=== PATIENT | female | born 1980 | race Caucasian/White ===

== ENCOUNTER 2016-09-09 21:24 | Emergency (ER) | payer BC, OTHER ==
[~2016-09-09] VITALS: Ht 162.6 cm; Wt 61.3 kg
[~2016-09-09 21:24] MED LIST: CEPH500C2 PO; ONDA4TAB46 PO; PHEN-939 PO
[2016-09-09 21:32] VITALS: TEMP 36.7; Ht 162.6 cm; Wt 61.3 kg
[2016-09-09] MEDS ORDERED: CEFTRIAXONE SOD INJ 1 GM ADDVIAL IV STA (21:40)
[2016-09-09] MEDS ORDERED: ONDANSETRON INJ 2 MG/ML 2 ML VIAL IV STA (21:40)
[2016-09-09] MEDS ORDERED: KETOROLAC TROMETHAMINE 30 MG/ML VIAL IV STA (21:40)
[2016-09-09] MEDS ORDERED: SODIUM CHLORIDE 0.9% 1000ML 1,000 ML IV STA ×2 (21:40)
[2016-09-09 22:05] LABS: BASO % 0.3 %; BASO ABS # 0.02 K/uL (0-0.2); COMPLETE YES; EOS % 1.4 %; HEMATOCRIT 39.8 % (37-47); IG% 0.3 %; LYMPH % 38.2 %; LYMPH ABS # 2.81 K/uL (1.2-3.4); MEAN CELL VOLUME 90.5 fL (80-100); MEAN CORPUSCULAR HEMOGLOBIN 31.4 pg (25-34); MEAN CORPUSCULAR HGB CONC 34.7 g/dl (32-36); MONO % 7.1 %; NEUT % 52.7 %; PLATELET COUNT 169 K/uL (130-400); WHITE BLOOD COUNT 7.36 K/uL (4.8-10.8)
[2016-09-09 22:22] LABS: BUN/CREATININE RATIO 26.7 (10-20); CALCIUM 8.7 mg/dl (8.5-10.1); CREATININE 0.6 mg/dl (0.60-1.20); POTASSIUM 3.6 mmol/L (3.5-5.1)
--- NOTE | 2016-09-09 22:45 | DIAGNOSTIC IMAGING REPORT ---
RENAL ULTRASOUND HISTORY: right flank pain, ? Stone/pyelo COMPARISON: Abdomen and pelvis CT 05/19/2016. FINDINGS: Right kidney: 13.1 cm. No hydronephrosis. Normal corticomedullary differentiation and cortical thickness. There is a 5 mm stone within the right kidney. There are few small cysts measuring up to 1 cm. Left kidney: 11.5 cm. No hydronephrosis. Normal corticomedullary differentiation and cortical thickness. Bladder: Not well distended. No bladder wall thickening. The ureteral jets were not identified during the examination. IMPRESSION: Right-sided nephrolithiasis. No hydronephrosis. Electronically signed by: Shayne Gallardo M.D. 09/09/2016 10:43 PM Dictated Date/Time: 09/09/2016 10:41 PM
[2016-09-10] LABS: URINE APPEARANCE CLOUDY (CLEAR); URINE BILIRUBIN NEG (NEG); URINE COLOR YELLOW; URINE EPITHELIAL CELL AUTO >30 /lpf (0-5); URINE NITRITE NEG (NEG); URINE SPECIFIC GRAVITY 1.021 (1.000-1.030); UROBILINOGEN NEG (NEG); ZZUR CULT IF INDIC CLEAN CATCH YES
[2016-09-10 00:01] LABS: MANUAL MICROSCOPIC REQUIRED? NO; REVIEW REQ? NO
[2016-09-10] MEDS ORDERED: SEPTRA DS HOME PACK 1 EA VIAL PO ONE (00:15)
[2016-09-10] MEDS ORDERED: TRAMADOL HCL 50 MG HOME PACK PO ONE (00:15)
--- NOTE | 2016-09-10 00:17 | EMERGENCY ROOM VISIT NOTE ---
History First contact with patient: 21:36 Chief Complaint: UNABLE TO VOID Stated Complaint: BACK/ABD PAIN,UNABLE TO URINATE History of Present Illness The patient is a 36 year old female who presents to the Emergency Room with complaints of right flank pain with urinary free to see, urgency and dysuria with pain that goes down to her bladder region for the past day. Patient last urinated this afternoon. It is now 10 PM at night. Patient feels that she currently has to go. Patient denies chest pain, dyspnea, fever, chills, nausea , vomiting, diarrhea, vaginal itching or discharge. She has had bladder infections before. She's had kidney stones before but this feels different. Review of Systems See HPI for pertinent positives & negatives. A total of 10 systems reviewed and were otherwise negative. Past Medical/Surgical History Medical Problems: (1) Anxiety (2) Anxiety (3) Degenerative disc disease (4) GERD (gastroesophageal reflux disease) (5) Herniated disc Family History Cancer Diabetes mellitus Hypertension Kidney disease Social History Smoking Status: Current Every Day Smoker Marital Status: single Housing Status: lives with family Occupation Status: employed Current/Historical Medications No Active Prescriptions or Reported Meds Allergies Coded Allergies: Prednisone (Verified Allergy, Mild, Rash, 09/09/16) Acetaminophen (Verified Allergy, Unknown, ., 09/09/16) Meperidine (Verified Allergy, Unknown, Hives, 09/09/16) Nitrofurantoin (Verified Allergy, Unknown, Nausea/Vomiting, 09/09/16) Oxycodone (Verified Allergy, Unknown, ., 09/09/16) Pantoprazole (Verified Allergy, Unknown, Abdominal pain and shortness of breath., 09/09/16) Physical Exam Vital Signs Date Time Temp Pulse Resp B/P Pulse Ox O2 Delivery O2 Flow Rate FiO2 09/09/16 22:54 70 16 102/51 09/09/16 22:14 69 09/09/16 21:32 36.7 83 18 102/58 98 Room Air Physical Exam VITALS: Vitals are noted on the nurse's note and reviewed by myself. Vital signs stable. GENERAL: Pleasant female, in no acute distress, nondiaphoretic, well-developed well-nourished. SKIN: The skin was without rashes, erythema, edema, or bruising. There is no tenting of the skin. Capillary reflex less than 2 seconds. HEAD: Normocephalic atraumatic. EARS: External auditory canals clear, tympanic membranes pearly baxter without erythema or effusion bilaterally. EYES: Pupils equal round and reactive to light and accommodation. Conjunctivae without injection, sclerae without icterus. Extraocular movements intact. NOSE: Patent, turbinates without inflammation or discharge. MOUTH: Mucous membranes moist. Pharynx without erythema or exudate. Uvula midline. Airway patent. Tongue does not deviate. NECK: Supple without nuchal rigidity. No lymphadenopathy. No thyromegaly. Cervical spine is nontender. No JVD. HEART: Regular rate and rhythm without murmurs gallops or rubs. LUNGS: Clear to auscultation bilaterally without wheezes, rales or rhonchi. No dullness to percussion. No retractions or accessory muscle use. ABDOMEN: Positive bowel sounds x 4. Normal tympanic percussion. Soft, nontender, without masses or organomegaly. Combs sign negative. No guarding or rebound tenderness. Right CVA tenderness with bladder discomfort MUSCULOSKELETAL: No muscle atrophy, erythema, or edema noted. NEURO: Patient was alert and oriented to person place and time. Normal sensation to light and sharp touch. No focal neurological deficits. Medical Decision & Procedures Laboratory Results 09/09/16 21:50 Red Blood Count 4.40, Mean Corpuscular Volume 90.5, Mean Corpuscular Hemoglobin 31.4, Mean Corpuscular Hemoglobin Concent 34.7, Mean Platelet Volume 11.0, Neutrophils (%) (Auto) 52.7, Lymphocytes (%) (Auto) 38.2, Monocytes (%) (Auto) 7.1, Eosinophils (%) (Auto) 1.4, Basophils (%) (Auto) 0.3, Neutrophils # (Auto) 3.89, Lymphocytes # (Auto) 2.81, Monocytes # (Auto) 0.52, Eosinophils # (Auto) 0.10, Basophils # (Auto) 0.02 09/09/16 21:50 Test 09/09/16 21:50 09/09/16 23:00 White Blood Count 7.36 K/uL (4.8-10.8) Red Blood Count 4.40 M/uL (4.2-5.4) Hemoglobin 13.8 g/dL (12.0-16.0) Hematocrit 39.8 % (37-47) Mean Corpuscular Volume 90.5 fL (80-100) Mean Corpuscular Hemoglobin 31.4 pg (25-34) Mean Corpuscular Hemoglobin Concent 34.7 g/dl (32-36) Platelet Count 169 K/uL (130-400) Mean Platelet Volume 11.0 fL (7.4-10.4) Neutrophils (%) (Auto) 52.7 % Lymphocytes (%) (Auto) 38.2 % Monocytes (%) (Auto) 7.1 % Eosinophils (%) (Auto) 1.4 % Basophils (%) (Auto) 0.3 % Neutrophils # (Auto) 3.89 K/uL (1.4-6.5) Lymphocytes # (Auto) 2.81 K/uL (1.2-3.4) Monocytes # (Auto) 0.52 K/uL (0.11-0.59) Eosinophils # (Auto) 0.10 K/uL (0-0.5) Basophils # (Auto) 0.02 K/uL (0-0.2) RDW Standard Deviation 41.8 fL (36.4-46.3) RDW Coefficient of Variation 12.6 % (11.5-14.5) Immature Granulocyte % (Auto) 0.3 % Immature Granulocyte # (Auto) 0.02 K/uL (0.00-0.02) Anion Gap 10.0 mmol/L (3-11) Est Creatinine Clear Calc Drug Dose 113.1 ml/min Estimated GFR () 136.9 Estimated GFR (Non- 118.1 BUN/Creatinine Ratio 26.7 (10-20) Calcium Level 8.7 mg/dl (8.5-10.1) Total Bilirubin 0.6 mg/dl (0.2-1) Direct Bilirubin 0.1 mg/dl (0-0.2) Aspartate Amino Transf (AST/SGOT) 14 U/L (15-37) Alanine Aminotransferase (ALT/SGPT) 17 U/L (12-78) Alkaline Phosphatase 83 U/L (45-117) Total Protein 7.4 gm/dl (6.4-8.2) Albumin 3.9 gm/dl (3.4-5.0) Urine Color YELLOW Urine Appearance CLOUDY (CLEAR) Urine pH 5.0 (4.5-7.5) Urine Specific [place] 1.021 (1.000-1.030) Urine Protein NEG (NEG) Urine Glucose (UA) NEG (NEG) Urine Ketones 1+ (NEG) Urine Occult Blood TRACE (NEG) Urine Nitrite NEG (NEG) Urine Bilirubin NEG (NEG) Urine Urobilinogen NEG (NEG) Urine Leukocyte Esterase NEG (NEG) Urine WBC (Auto) 1-5 /hpf (0-5) Urine RBC (Auto) 0-4 /hpf (0-4) Urine Hyaline Casts (Auto) 1-5 /lpf (0-5) Urine Epithelial Cells (Auto) >30 /lpf (0-5) Urine Bacteria (Auto) 1+ (NEG) Medications Administered Medications (Trade) Dose Ordered Sig/Tiff Route Start Time Stop Time Status Last Admin Dose Admin Ceftriaxone Sodium (Rocephin Inj) 1 gm NOW STAT IV 09/09/16 21:40 09/09/16 21:47 DC 09/09/16 21:59 1 GM Ondansetron HCl (Zofran Inj) 4 mg NOW STAT IV 09/09/16 21:40 09/09/16 21:47 DC 09/09/16 21:59 4 MG Ketorolac Tromethamine 30 mg 30 mg NOW STAT IV 09/09/16 21:40 09/09/16 21:47 DC 09/09/16 22:00 30 MG Sodium Chloride (Nss 1000ml) 1,000 ml @ 999 mls/hr Q1H1M STAT IV 09/09/16 21:40 09/09/16 22:40 DC 09/09/16 22:01 999 MLS/HR ED Course Prior records/ancillary studies reviewed. Triage Nursing notes reviewed. Additional history obtained from the family. The patient's history was concerning for her and her symptoms with right flank pain. Differential diagnosis: Etiologies such as renal colic, appendicitis, diverticulitis, mesenteric ischemia, aortic pathology, infections, inflammatory bowel disease, PUD, biliary pathology, UTI, as well as others were entertained. Physical examination findings: As above. ER treatment provided: Rocephin, IV fluids, Toradol, Zofran On reassessment the patient felt better. Diagnostic interpretation by me: The labs revealed no worrisome leukocytosis or left slight abnormality. Urinalysis revealed concerns for contamination and Urine sent for culture Imaging studies: Ultrasound revealed no hydronephrosis It appears that the patient has possible early UTI as she is symptomatic. Patient was offered CT imaging and declined. I felt this is reasonable as she' s had multiple scans in the past. Patient was well-appearing. She was not septic appearing. Afebrile. She was tolerating fluids. She is advised to rest , stay well-hydrated, take medications as directed and to follow-up family care in a few days or here in the ER sooner for fevers, vomiting, severe pain, worsening signs or symptoms or as needed. Patient did not have acute abdomen on exam.By the evaluation outlined above emergent etiologies such as appendicitis, diverticulitis, mesenteric ischemia, aortic pathology inflammatory bowel disease, PUD, biliary pathology, as well as others were deemed relatively unlikely. The pt informed about the findings as listed above. All questions were answered and pleased with the treatment. Return instructions were outlined and the patient was discharged in stable condition. Outpatient prescription management: BD Referral: The patient was referred back to their primary care physician for follow-up in 2 to 3 days for a recheck of the current condition. Case reviewed with my attending. Medical Decision As above [place] Drug Monitoring Program Search Results: patient reviewed within database, no issues identified Impression Primary Impression: UTI (urinary tract infection) Additional Impression: Right flank pain Departure Information Dispostion Home / Self-Care Condition GOOD Prescriptions No Active Prescriptions or Reported Meds Referrals Slim Gaines M.D. (PCP) Patient Instructions My [facility] Additional Instructions DO NOT drive, drink alcohol, operate machinery, or perform dangerous activities today. You were given medications in the ER that can affect your ability to safely function or operate a vehicle. Trimethoprim-Sulfamethoxazole(Bactrim DS): Take one pill twice daily for 7 days for your urine infection. All antibiotics can cause diarrhea. If this occurs and you feel worse or it does not resolve in 1-2 days follow up with your doctor or return to the Emergency Department as this could be signs of serious underlying problems. Any medication can cause an allergic reaction, stop the pills immediately and return to the ER for rash, hives, breathing difficulties, or swelling. Zofran 4 mg: Take one every six hours as needed for nausea. Avoid alcohol, operating machinery or dangerous equipment, working on ladders or roofs, DRIVING , or situations where being under the influence may be dangerous. Ibuprofen(Motrin, Advil) may be used for fever or pain. Use 600mg every six hours as needed. Take with food. Avoid using more than 2400mg in a 24 hour period. Do not use 2400mg per day for more than three consecutive days without physician direction. Prolonged inappropriate use can lead to stomach upset or ulcers. Rest and drink plenty of fluids as tolerated. Slow sips of water or sports drinks are recommended instead of large amounts all at once. Continue current medications. Once your stomach is settled start with a clear liquid diet (jello, soup broth, etc.) and then advance as tolerated. You should avoid full, heavy meals for about 24 hrs from the time your symptoms resolved. Return to the ER immediately for worsening or persistent abdominal/back pain, vomiting, fevers, worsening of your condition, or as needed. Follow up with your primary physician within 2-3 days for a recheck of the current condition. Problem Qualifiers Primary Impression: UTI (urinary tract infection) Urinary tract infection type: site unspecified Hematuria presence: with hematuria Qualified Codes: N39.0 - Urinary tract infection, site not specified ; R31.9 - Hematuria, unspecified
[2016-09-10] MEDS ORDERED: SULF800T23 PO (00:18)
[2016-09-10 00:31] VITALS: BP 104/55; PULSE 70; O2SAT 97
== END 2016-09-10 00:34 | disposition home or self-care (01) ==
LOC: C.EDB 21:24 → C.EDA 09-10 00:34
DX: N39.0 Urinary tract infection, site not specified (principal); Z87.442 Personal history of urinary calculi; F41.9 Anxiety disorder, unspecified; K21.9 Gastro-esophageal reflux disease without esophagitis; Z83.3 Family history of diabetes mellitus; Z82.49 Family history of ischemic heart disease and other diseases of the circulatory system; F17.210 Nicotine dependence, cigarettes, uncomplicated

== ENCOUNTER 2017-08-18 16:02 | Emergency (ER) | payer BC ==
[~2017-08-18] VITALS: Ht 162.6 cm; Wt 63.0 kg
[2017-08-18 16:13] VITALS: Ht 162.6 cm; Wt 63.0 kg
[2017-08-18 16:49] LABS: INFLUENZA B ANTIGEN Neg for Influ B (NEG)
[2017-08-18] MEDS ORDERED: ALUMINUM/MAGNESIUM SUSP 30 ML UDC PO STA (18:18)
[2017-08-18] MEDS ORDERED: ACETAMINOPHEN 500 MG TAB PO STA (18:18)
[2017-08-18] MEDS ORDERED: OSEL75CA12 PO (18:24)
[2017-08-18] MEDS ORDERED: ONDANSETRON 4MG OD TAB PO ONE (18:30)
--- NOTE | 2017-08-18 18:35 | EMERGENCY ROOM VISIT NOTE ---
History Report prepared by Lauren: Shine Lopez Under the Supervision of: Frannie LinO. First contact with patient: 18:07 Chief Complaint: FLU LIKE SX Stated Complaint: FEVER, CHILLS/SWEATS, BODY ACHES, COUGH, SOB History of Present Illness The patient is a 37 year old female who presents to the Emergency Room with complaints of worsening flu like symptoms starting yesterday. The patient states that yesterday she had a cough and diarrhea. Today she is having severe body aches, chest pain, abdominal pain, ear pain, headache, and nausea. She reports that she had a fever of 102.6 at home, and she took naproxen around 1430. She denies any vomiting, rashes, sores, and any diarrhea today. She states that she has not been eating or drinking very much. She states that she has not been around anyone sick recently, though she states that she was just in [facility]. She states that she did not get a flu shot in the fall, and she denies any other medical problems. Source of History: patient Onset: yesterday Position: other (global) Quality: other (flu like symptoms) Timing: worsening Associated Symptoms: + fevers, + headache, + cough, + chest pain, + nausea, + abdominal pain, No vomiting, No rash Note: Associated symptoms: body aches and ear pain Review of Systems See HPI for pertinent positives & negatives. A total of 10 systems reviewed and were otherwise negative. Past Medical & Surgical Medical Problems: (1) Anxiety (2) Anxiety (3) Degenerative disc disease (4) GERD (gastroesophageal reflux disease) (5) Herniated disc Family History Cancer Diabetes mellitus Hypertension Kidney disease Social History Smoking Status: Current Every Day Smoker Marital Status: single Housing Status: lives with family Occupation Status: employed Current/Historical Medications Scheduled Oseltamivir (Tamiflu), 75 MG PO BID Allergies Coded Allergies: Prednisone (Verified Allergy, Mild, Rash, 09/09/16) Acetaminophen (Verified Allergy, Unknown, ., 09/09/16) Meperidine (Verified Allergy, Unknown, Hives, 09/09/16) Nitrofurantoin (Verified Allergy, Unknown, Nausea/Vomiting, 09/09/16) Oxycodone (Verified Allergy, Unknown, ., 09/09/16) Pantoprazole (Verified Allergy, Unknown, Abdominal pain and shortness of breath., 09/09/16) Physical Exam Vital Signs Date Time Temp Pulse Resp B/P (MAP) Pulse Ox O2 Delivery O2 Flow Rate FiO2 08/18/17 19:20 37.1 85 18 108/72 97 Room Air 08/18/17 16:13 37.8 97 18 105/63 97 Room Air Physical Exam GENERAL: alert, well appearing, well nourished, no distress, non-toxic EYE EXAM: normal conjunctiva, PERRL and EOM's grossly intact OROPHARYNX: no exudate, no erythema, lips, buccal mucosa, and tongue normal and mucous membranes are moist NECK: supple, no nuchal rigidity, no adenopathy, non-tender LUNGS: Clear to auscultation. Normal chest wall mechanics HEART: no murmurs, S1 normal and S2 normal ABDOMEN: abdomen soft, non-tender, normo-active bowel sounds, no masses, no rebound or guarding. BACK: Back is symmetrical on inspection and there is no deformity, no midline tenderness, no CVA tenderness. SKIN: no rashes and no bruising UPPER EXTREMITIES: upper extremities are grossly normal. LOWER EXTREMITIES: No pitting edema. NEURO EXAM: Normal sensorium, cranial nerves II-XII grossly intact, normal speech, no gross weakness of arms, no gross weakness of legs. Medical Decision & Procedures Laboratory Results Test 08/18/17 16:15 Influenza Type A Antigen POS for Influ A (NEG) Influenza Type B Antigen Neg for Influ B (NEG) Laboratory results per my review. Medications Administered Medications (Trade) Dose Ordered Sig/Tiff Route Start Time Stop Time Status Last Admin Dose Admin Al Hydroxide/Mg Hydroxide (Maalox Susp) 15 ml NOW STAT PO 08/18/17 18:18 08/18/17 18:19 DC 08/18/17 18:23 15 ML Acetaminophen (Tylenol Tab) 1,000 mg NOW STAT PO 08/18/17 18:18 08/18/17 18:19 DC 08/18/17 18:24 1,000 MG Ondansetron HCl (Zofran Odt) 4 mg ONE ONCE PO 08/18/17 18:30 08/18/17 18:31 DC 08/18/17 18:24 4 MG Oseltamivir Phosphate (Tamiflu Cap) 75 mg NOW STAT PO 08/18/17 18:42 08/18/17 18:43 DC 08/18/17 19:17 75 MG Ondansetron HCl (ZOFRAN ODT 4MG Home Pack) 1 homepack UD ONCE PO 08/18/17 18:45 08/18/17 18:46 DC 08/18/17 19:16 1 HOMEPACK ECG Per My Interpretation Indication: chest pain Rate (beats per minute): 91 Rhythm: normal sinus Findings: no acute ischemic change, no ectopy, other (Normal intervals and normal axis) ED Course 1806: The patient was evaluated in room D6. A complete history and physical exam was performed. 1817: Tylenol Tab 1000mg PO, Maalox Susp 15ml PO 1829: Zofran 4mg PO 1841: Tamiflu Cap 75mg PO 1844: Zofran ODT 4mg Home Pack PO 1846: Upon reevaluation, the patient is feeling better. I discussed the findings and the treatment plan with the patient. She verbalizes agreement and understanding. She was discharged home. Medical Decision Differential diagnosis: Etiologies such as viral syndrome, otitis, pharyngitis, pneumonia, influenza, meningitis, urinary tract infection, sepsis, bacteremia, as well as others were entertained. Patient with very typical description of presentation for influenza. Patient positive for influenza A here. Patient with no other respiratory distress, lungs clear to auscultation, patient not hypoxic doubt occult pneumonia or other additional respiratory pathology. Patient not immunocompromised, otherwise healthy discussed Tamiflu at bedside which patient would like to try. Patient with no other acute GI symptoms, vital signs stable. Discussed hydration, Tylenol and ibuprofen, symptoms to watch and return for, she verbalized understanding was agreeable with plan. Doubt additional underlying infectious pathology, doubt meningitis/encephalitis, doubt bacteremia/sepsis, doubt pericarditis/myocarditis. Medication Reconcilliation Current Medication List: was personally reviewed by me Blood Pressure Screening Patient's blood pressure: Normal blood pressure Impression Primary Impression: Flu Scribe Attestation The scribe's documentation has been prepared under my direction and personally reviewed by me in its entirety. I confirm that the note above accurately reflects all work, treatment, procedures, and medical decision making performed by me. Departure Information Dispostion Home / Self-Care Prescriptions Oseltamivir (Tamiflu) 75 Mg Cap 75 MG PO BID, #10 CAP Prov: Sherry Carlos, DO 08/18/17 Referrals Slim Gaines M.D. (PCP) Forms HOME CARE DOCUMENTATION FORM, IMPORTANT VISIT INFORMATION Patient Instructions My [facility] Additional Instructions Please continue to drink plenty of liquids, particularly water, to stay well- hydrated. You may use Tylenol and ibuprofen as needed for body aches and fevers. You may not have a normal appetite, that is normal when you are sick. He may use [id number] cough and cold remedies for your cough. You may also use the prescription medication as prescribed. If you have any worsening symptoms including increased cough, blood in your sputum, difficulty breathing, dizziness, vomiting, diarrhea, your fevers do not respond to Tylenol or ibuprofen, you've any other new concerns please return the emergency room.
[2017-08-18] MEDS ORDERED: OSELTAMIVIR PHOSPHATE 75 MG CAP PO STA (18:42)
[2017-08-18] MEDS ORDERED: ONDANSETRON HOME PACK 4MG OD TAB PO ONE (18:45)
[2017-08-18 19:20] VITALS: BP 108/72; PULSE 85; TEMP 37.1; O2SAT 97
== END 2017-08-18 19:22 | disposition home or self-care (01) ==
LOC: C.EDB 16:04 → C.EDD 19:22
DX: J11.1 Influenza due to unidentified influenza virus with other respiratory manifestations (principal); F17.200 Nicotine dependence, unspecified, uncomplicated; Z83.3 Family history of diabetes mellitus; Z82.49 Family history of ischemic heart disease and other diseases of the circulatory system